=== PATIENT | male | born 1965 | race Caucasian/White ===

== ENCOUNTER → 2018-03-17 09:11 | Outpatient (CLI) | payer BC, SELFPAY ==
--- NOTE | 2018-03-17 09:25 | XR_ITS ---
XR foot LT min 3V HISTORY: Pain following injury ITS.REASON: CONTUSION 2ND TOE LT FOOT ORDERING PHYSICIAN: Yeison Hayden PATIENT AGE: 52 years COMPARISON: None FINDINGS: There are mild osteoarthritic changes of the first metatarsophalangeal joint. No fracture or dislocation. IMPRESSION: Osteoarthritis of the first MTP joint otherwise negative
== END ==
PROVIDERS: PCP Family Medicine; Visit Provider Family Medicine
DX: S90.121D Contusion of right lesser toe(s) without damage to nail, subsequent encounter (principal)
CPT/HCPCS: 73630

== ENCOUNTER → 2021-06-25 07:40 | Outpatient (CLI) | payer BC, SELFPAY ==
--- NOTE | 2021-06-25 | CA_ITS ---
APPROVED REPORT Exam: Exercise Treadmill Technologist: Feli Marroquin Ht: 6 ft 0 in Wt: 170 lbs BSA: 1.99 m2 HR: 78 bpm BP: 148/93 mmHg Indications: Chest pain Stress Test Details Test: Deandre HR Resting HR: 101 bpm Max Heart Rate (APMHR): 163.268602 bpm Max HR Achieved: 143 bpm Target HR (85% APMHR): 138.694244 bpm % of APMHR: 87.73 Recovery HR: 102 bpm BP Resting BP: 148.0/93.0 mmHg Max BP: 190.0/94.0 mmHg Recovery BP: 163.0/73.0 mmHg ECG Resting ECG: Normal sinus rhythm Clinical Exercise duration: 06:46 min Highest Stage Achieved: Exercise capacity: 7.0 METs Stress ECG Conclusion Stopped at 6:46 on Deandre Protocol, due to shortness of air. Symptoms: No chest pain. Arrhythmias/Ectopy: None ST-T Changes: Normal ST response to exercise. Conclusion: Normal GXT. GXT only (no imaging). Electronically signed by : Raffi Villa MD 06/26/2021 09:53:51
== END ==
PROVIDERS: PCP Family Medicine; Visit Provider Physician Assistant
DX: R07.9 Chest pain, unspecified (principal)
CPT/HCPCS: 93017

== ENCOUNTER → 2021-07-01 08:01 | Outpatient (CLI) | payer BC, SELFPAY ==
--- NOTE | 2021-07-01 | CA_ITS ---
APPROVED REPORT EXAM: Comprehensive 2D, Doppler, and color-flow Echocardiogram Railroad Carman: Yolanda Berry CRT Ht: 6 ft 0 in Wt: 180lbs BSA: 2.04 BP: 140/85 mmHg Indications: Chest Pressure, Hypertension/HDD, SMOKER 2D Dimensions LVOT 2.04 cm (M/F) 1.5-2.5 LA Volume 29.30 mL LA Volume Index 14.40 mL/m2 (M/F) 16-34 M-Mode Dimensions RVDd 3.84 cm (0.9-2.6) LA Diam 3.62 cm (1.9-4.0) LVDd 4.96 cm (3.5-5.7) Ao Diam 4.25 cm (2.0-3.7) LVDs 3.31 cm (3.5-5.7) IVSd 1.12 cm (0.6-1.1) PWd 0.56 cm (0.6-1.1) EF (Teich) 61.70% FS 33.30% EDV (Teich) 116.10 mL TAPSE 2.87 (<1.7) ESV (Teich) 44.50 mL LV Diastology E Decel Time 213.00 (160-240 msec) E/A Ratio 1.02 MED E' 6.60 (< 7 cm/sec) MED A' 10.50 cm/s E'/MED E' Ratio 9.32 (>14) LAT E' 7.80 (<10 cm/sec) LAT A' 11.80 cm/s E/LAT E' Ratio 7.88 (>14) Aortic Valve AO Peak GR. 4.90 mmHg Mitral Valve MV A Velocity 60.00 (40-130 cm/s) E/A Ratio 1.02 MV Decel. Time 213.00 (160-240 ms) Pulmonary Valve PV Peak Velocity 71.00 (50-150 cm/s) Tricuspid Valve TR P. Velocity 144.00 cm/s Left Ventricle Left atrium is mildly enlarged, left ventricle is normal size, mild concentric left ventricular hypertrophy, visually estimated ejection fraction 55% with no regional wall motion abnormality, grade 1 diastolic dysfunction seen without tissue Doppler evidence of raise left atrial pressure. Right Ventricle Right atrium and right ventricle mildly enlarged with normal contractility. Aortic Valve Aortic valve is minimally thickened and fibrosed, there is no aortic stenosis or aortic insufficiency. Mitral Valve Mitral valve is grossly normal, there is trace mitral regurgitation. Tricuspid Valve Tricuspid valve grossly normal, there is trace tricuspid regurgitation, tricuspid regurgitation reflux is inadequate for calculation of the right ventricular systolic pressure. Pulmonic Valve Pulmonic valve is poorly visualized. Great Vessels Aortic root is normal size. Inferior vena cava is normal size with normal inspiratory collapse. Pericardium No significant pericardial effusion noted. Conclusion 1. Mild biatrial normal, normal left ventricular size, mild concentric left ventricular hypertrophy, visually estimated ejection fraction 55% with no regional wall motion abnormality, grade 1 diastolic dysfunction seen without tissue Doppler evidence of raise left atrial pressure. 2. Mildly dilated ventricle with normal contractility. 3. Trace mitral and tricuspid regurgitation. 4. No significant pericardial effusion noted. 5. Inferior vena cava is normal size with normal inspiratory collapse. Electronically signed by : Raffi Villa MD 07/01/2021 18:41:10
== END ==
PROVIDERS: PCP Family Medicine; Visit Provider Physician Assistant
DX: R07.9 Chest pain, unspecified (principal)
CPT/HCPCS: 93306

== ENCOUNTER → 2023-03-15 07:43 | Outpatient (CLI) | payer BC, SELFPAY ==
--- NOTE | 2023-03-15 | US_ITS ---
FINAL REPORT CLINICAL HISTORY: Numbness bilateral feet, color changes bilateral feet, current smoker, HTN. FINDINGS: ANKLE-BRACHIAL PRESSURE INDICES Pressure indices are as follows: RIGHT LOWER EXTREMITY: Ankle-brachial pressure index: 1.2 Comments: Normal LEFT LOWER EXTREMITY: Ankle-brachial pressure index: 1.16 Comments: Normal IMPRESSION: No evidence of significant obstructive peripheral vascular disease of the lower extremities Reviewed, Interpreted and Dictated by Billy Santo III, MD Transcribed by Bernadette Skinner Authenticated and . [facility]
== END ==
PROVIDERS: PCP Physician Assistant; Visit Provider Physician Assistant
DX: R20.2 Paresthesia of skin (principal); I10 Essential (primary) hypertension; Z72.0 Tobacco use
CPT/HCPCS: 93923

== ENCOUNTER → 2023-05-18 07:48 | Outpatient (CLI) | payer BC, SELFPAY ==
[2023-05-18 08:27] LABS: Basophils % 0.6 % (0.1-2.0); Eosinophils # 0.5 K/mm3 (0.0-0.4); Eosinophils % 7.8 % (0.1-12.0); Hematocrit 43.4 % (42.0-52.0); Hemoglobin 14.4 g/dL (14.1-18.0); Lymphocytes # 1.9 K/mm3 (0.7-4.5); Lymphocytes % 31.8 % (10-50); Mean Corpuscular HGB Conc 33.1 g/dL (31.8-35.4); Mean Corpuscular Volume 99.8 fl (80-94); Mean Platelet Volume 7.5 fl (7.4-10.4); Monocytes # 0.4 K/mm3 (0.1-1.0); Monocytes % 6.1 % (1.7-9.3); Neutrophils # 3.2 K/mm3 (1.8-7.8); Neutrophils % 53.6 % (37.0-80.0); Platelet Count 310 K/mm3 (142-424); Red Blood Count 4.35 M/mm3 (4.60-6.20); Red Cell Distribution Width 12.4 % (11.5-17.5); White Blood Count 5.9 K/mm3 (4.8-10.8)
[2023-05-18 09:55] LABS: Alanine Aminotransferase 29 U/L (12-78); Albumin Level 4.6 g/dl (3.5-5.0); Albumin/Globulin Ratio 1.6 (1.1-1.8); Alkaline Phosphatase 69 U/L (38-126); Anion Gap 14.8 mEq/L (5-15); Aspartate Amino Transferase 42 U/L (17-59); Bilirubin,Total 0.3 mg/dl (0.2-1.3); Blood Urea Nitrogen 8 mg/dl (9-20); Calcium 9.3 mg/dl (8.4-10.2); Carbon Dioxide 28 mmol/L (22.0-30.0); Chloride 94 mmol/L (98-107); Estimated Glomerular Filt Rate 116 ml/min (>60); GFR (African American) 140 ML/MIN (>60); Globulin 2.9 g/dL (1.3-3.2); Glucose 86 mg/dl (74-100); Potassium 4.8 mmoL/L (3.5-5.1); Sodium 132 mmol/L (136-145); Total Protein,Serum 7.5 g/dl (6.3-8.2)
[2023-05-18 10:01] LABS: C-Reactive Protein 0.6 mg/L (0-4)
[2023-05-18 10:24] LABS: Thyroid Stimulating Hormone 1.07 uIU/mL (0.465-4.68)
[2023-05-18 10:44] LABS: Erythrocyte Sedimentation Rate 13 mm/hr (0-20)
[2023-05-18 11:00] LABS: Vitamin B12 840 pg/mL (239-931)
[2023-05-18 11:06] LABS: Folate > 20.00 ng/mL
[2023-05-19 13:41] LABS: Anti-Centromere B Antibodies <0.2 AI (0.0-0.9); Anti-DNA (DS) Ab Qn <1 IU/mL (0-9); Anti-Jo-1 <0.2 AI (0.0-0.9); Anti-Smith Antibody <0.2 AI (0.0-0.9); Antichromatin Antibodies <0.2 AI (0.0-0.9); Antiscleroderma-70 Antibodies <0.2 AI (0.0-0.9); RNP Antibodies <0.2 AI (0.0-0.9); Sjogren's Anti-SS-A 0.3 AI (0.0-0.9); Sjogren's Anti-SS-B <0.2 AI (0.0-0.9)
[2023-05-19 15:59] LABS: Albumin 3.9 g/dL (2.9-4.4); Alpha-1-Globulin 0.3 g/dL (0.0-0.4); Alpha-2-Globulin 0.8 g/dL (0.4-1.0); Gamma Globulin 1.1 g/dL (0.4-1.8); Protein, Total 7.2 g/dL (6.0-8.5)
[2023-05-23 05:03] LABS: Arsenic, Blood 1 ug/L (0-9); Lead, Blood 1.4 ug/dL (0.0-3.4); Mercury, Blood <1.0 ug/L (0.0-14.9)
== END ==
PROVIDERS: PCP Family Medicine; Visit Provider Specialist
DX: G62.9 Polyneuropathy, unspecified (principal)
CPT/HCPCS: 36415; 80053; 82175; 82607; 82746; 83655; 83825; 84155; 84165; 84443; 85025; 85651; 86140; 86225; 86235; 86334

== ENCOUNTER 2025-03-08 08:45 | Outpatient (CLI) | payer BC, SELFPAY ==
--- NOTE | 2025-03-08 | CA_ITS ---
APPROVED REPORT Exam: Exercise Treadmill Technologist: Ines Adam Ht: 6 ft 0 in Wt: 193 lbs BSA: 2.10 m2 HR: 76 bpm BP: 157/79 mmHg Rhythm: NSR Medical History Medical History: HTN, Smoking Medications: Losartan HCTZ, Pantoprazole Allergies: No known drug allergies Cardiac Risk Factors: HTN, Smoking Stress Test Details Test: Exercise stress testing was performed using a Deandre protocol. HR Resting HR: 76 bpm Max Heart Rate (APMHR): 160 bpm Max HR Achieved: 140 bpm Target HR (85% APMHR): 136 bpm % of APMHR: 88 Recovery HR: 87 bpm HR response to stress: Normal HR response to stress BP Resting BP: 157.0/79.0 mmHg Max BP: 190.0/90.0 mmHg Recovery BP: 157.0/78.0 mmHg BP response to stress: Normal blood pressure response to stress. ECG Resting ECG: NSR Stress EC.[address] depression Clinical Exercise duration: 6.58 min Exercise capacity: 8.6 METs Stress ECG Conclusion Patient had shortness of breath with peak exercise Test stopped due to leg fatigue CONCLUSION Average exercise capacity. No evidence of ischemia on ECG at peak stress Electronically signed by : Sharon Rosas MD 03/09/2025 15:41:55
--- OUTSIDE RECORDS SUMMARY | 2025-03-08 08:47 | XMS_ITS | Clinical Summary ---
Author Organization [facility] Address [address] [place] [id number] Phone [email or web address] Care Team Providers Care Nurse Companion Name Role Phone Unavailable Primary Care Provider Unavailabl e Allergies No known active allergies Medications diclofenac (VOLTAREN) 75 MG EC tablet Take 75 mg by mouth 2 (two) times a day. 03/16/2018 Active losartan (COZAAR) 25 MG tablet Take 25 mg by mouth 1 (one) time each day. 03/16/2018 Active Active Problems Problem Noted Date Diagnosed Date Pain in joint, shoulder region 09/08/2011 Overview (02/16/2018): Health examination of defined subpopulation 12/19 Overview (02/16/2018): Hearing loss 06/12/2010 Overview (02/16/2018): Encounter for hearing examin ation following failed hearing screening 06/03/2010 Overview (02/16/2018): Tobacco use disorder 10/24/2009 Overview (02/16/2018): Follow-up examination, following other surgery 1 Overview (02/16/2018): Other internal derangement of knee 06/26/2009 Overview (02/16/2018): Other examination of ears and hearing 06/14/2008 Overview (02/16/2018): Open wound of auricle, complicated 01/02/2008 Overview (02/16/2018): Displacement of lumbar inter vertebral disc without myelopathy 08/29/2007 Overview (02/16/2018): Social History Tobacco Use Types Packs/Day Years Used Date Smoking Tobacco: Every Day Cigarettes Smokeless Tobacco: Former Tobacco Cessation:Counseling Given: No Intimate Partner Violence Answer Date R ecorded Insults You Not on file 01/01/2021 Threatens You Not on file 01/01/2021 Screams at You Not on file 01/01/2021 Physically Hurt Not on file 01/01/2021 Intimate Partner Violence Score Not on file 01/01/2021 Stress Answer Date Recorded Stress in your Life Not on file 07/24/2024 Dealing with Stress 3 07/24/2024 Sex and Gender Information Value Date Recorded Sex Assigned at Not on file Legal Sex Male 9:34 AM CDT Gender Identity Not on file Sexual Orientation Not on file Last Filed Vital Signs Vital Sign Reading Time Taken Comments Blood Pressure 124/82 06/19/2019 8:11 AM EDT Pulse 81 06/19/2019 8:11 AM EDT Temperature 36.8 C (98.3 F) 06/19/2019 8:11 AM EDT Respiratory Rate 14 06/19/2019 8:11 AM EDT Oxygen Saturation 96% 06/19/2019 8:11 AM EDT Inhaled Oxygen Concentration - - Weight 80.7 kg (178 lb) 06/19/2019 8:11 AM EDT Height 181.6 cm (5' 11.5 ) 06/19/2019 8:11 AM ED T Body Mass Index 24.48 06/19/2019 8:11 AM EDT Plan of Treatment Health Maintenance Due Date Last Done Comments Dental Cleaning/Exam 1964 HIV Screening 1964 Hepatitis C Screening 1964 Annual Preventive Exam 1982 Hep B Infection Screening - Triple Screen 1982 Pneumococcal: Ped (0 to 5 Yr s) and At-Risk Member (6 to 64 Yrs) (1 of 2 - PCV) 1983 Tetanus Diphtheria and Pertu ssis Immunization (1 - Tdap) 1983 Colorectal Cancer Screening 1994 Zoster Immunization (1 of 2) 2014 Covid-19 Immunization (1 - 2 25 season) 2024 Influenza Immunization (Seas on Ended) 2025 HIB Immunization Aged Out No longer e ligible based on patient's age to complete this topic HPV Immunization Aged Out No longer e ligible based on patient's age to complete this topic Hepatitis A Immunization Aged Out No longer eligible based on patient's age to complete this topic Hepatitis B Immunization Aged Out No longer eligible based on patient's age to complete this topic Polio Immunization Aged Out No longer eligible based on [place] [id number] MIGUEL IN COPAY 20
--- NOTE | 2025-03-08 09:00 | CA_ITS ---
APPROVED REPORT EXAM: Comprehensive 2D, Doppler, and color-flow Echocardiogram Seaweed Harvester: Shelly Mayes, RCS, RVS Ht: 6 ft 0 in Wt: 193lbs BSA: 2.10 BP: 169/79 mmHg Indications: CP, Smoker, HTN 2D Dimensions IVSd 1.20 cm LVEF (Visual) 69.40 % PWd 1.12 cm LVDd 4.41 cm LVDs 2.70 cm Left Atrium 2.46 cm M-Mode Dimensions RVDd 2.10 cm (0.9-2.6) LA Diam 3.13 cm (1.9-4.0) LVDd 4.90 cm (3.5-5.7) LVDs 3.52 cm (3.5-5.7) IVSd 1.00 cm (0.6-1.1) PWd 1.26 cm (0.6-1.1) EF (Teich) 54.30% EPSs 1.00 cm FS 28.20% EDV (Teich) 112.80 mL TAPSE 2.51 (<1.7) ESV (Teich) 51.60 mL LV Diastology E Decel Time 260 (160-240 msec) E/A Ratio 0.78 MED A' 11.30 cm/s LAT A' 14.80 cm/s Aortic Valve STEPHANIE Index 1.14 cm2/m2 AoV Peak Hilario. 137.0 (50-130 cm/s) AO Peak GR. 7.50 mmHg AO Mean GR. 3.70 (<5 mmHg) AO VTI 28.1 (18-25 cm) STEPHANIE (VTI) 2.45 (2.5-4.5 cm2) Mitral Valve MV A Velocity 77.0 (40-130 cm/s) E/A Ratio 0.78 Pulmonary Valve PV Peak Velocity 116.0 (50-150 cm/s) Tricuspid Valve TR P. Velocity 268.00 cm/s RAP Estimate 10.00 mmHg RVSP 38.70 mmHg Left Ventricle The left ventricle is normal size. The left ventricular systolic function is normal. The left ventricular ejection fraction is within the normal range. There is normal LV wall thickness. There is normal LV segmental wall motion. The left ventricular diastolic function is normal. LVEF is 55%. Right Ventricle Right ventricle is mildly dilated. The right ventricular systolic function is normal. Atria The left atrium size is normal. The right atrium size is normal. There is no Doppler evidence of interatrial shunt. Aortic Valve The aortic valve opens well. There is no aortic valvular stenosis. No aortic regurgitation is present. Mitral Valve The mitral valve is normal in structure. No evidence of mitral valve stenosis. Trace mitral regurgitation. Tricuspid Valve Tricuspid valve is grossly normal in structure and function. Trace tricuspid regurgitation. There is insufficient TR jet to estimate RVSP. Pulmonic Valve The pulmonary valve is normal in structure. Trace pulmonic regurgitation. Great Vessels The aortic root is normal in size. IVC is normal in size and collapses >50% with inspiration. Pericardium There is no pericardial effusion. Other Information Study Quality: Fair Conclusion Normal biventricular systolic function. Mild RV dilation. No significant valvular stenosis or regurgitation. Electronically signed by : Sharon Rosas MD 03/12/2025 12:43:39
== END 2025-03-08 23:59 | disposition home or self-care (01) ==
LOC: RT 08:45
PROVIDERS: PCP Family Medicine; Visit Provider Physician Assistant
DX: F17.200 Nicotine dependence, unspecified, uncomplicated (principal); I11.9 Hypertensive heart disease without heart failure
CPT/HCPCS: 93017; 93018; 93306